=== PATIENT | male | born 1965 | race Caucasian/White ===

== ENCOUNTER 2017-05-16 16:50 | Day surgery (SDC) | payer OTHER ==
[2017-05-16] MEDS ORDERED: Lidocaine 1% 50 ML MDV ONE (17:16)
[2017-05-16] MEDS ORDERED: Bupivacaine 0.25% 30 ML SDV ONE (17:16)
--- NOTE | 2017-05-16 17:27 | PCM.PREANE ---
Preanesthetic Assessment - Anesthesia/Transfusion/Family Hx Anesthesia History: Prior Anesthesia Without Reaction Family History of Anesthesia Reaction: No Transfusion History: No Prior Transfusion(s) Additional History: hammer hit hand today at work. - Review of Systems General: No Symptoms Pulmonary: No Symptoms Cardiovascular: No Symptoms Gastrointestinal: No Symptoms Neurological: No Symptoms Other: Reports: None - Physical Assessment NPO Status Date: 05/16/17 NPO Status Time: 13:00 (sip pop) O2 Sat by Pulse Oximetry: 98 Respiratory Rate: 20 Vital Signs: Last Vital Signs Temp 97.9 F 05/16/17 17:03 Pulse 68 05/16/17 17:03 Resp 20 05/16/17 17:03 BP 157/97 H 05/16/17 17:03 Pulse Ox 98 05/16/17 17:03 Height: 5 ft 10 in Weight: 87.543 kg ASA Class: 2E Mental Status: Alert & Oriented x3 Airway Class: Mallampati = 1 Dentition: Reports: Normal Dentition Thyro-Mental Finger Breadths: 3 Mouth Opening Finger Breadths: 3 ROM/Head Extension: Full Lungs: Clear to Auscultation, Normal Respiratory Effort Cardiovascular: Regular Rate, Regular Rhythm - Allergies Allergies/Adverse Reactions: Allergies Allergy/AdvReac Type Severity Reaction Status Date / Time No Known Allergies Allergy Verified 05/16/17 17:09 - Blood Blood Available: No - Acknowledgements Anesthesia Type Planned: MAC Pt an Appropriate Candidate for the Planned Anesthesia: Yes Alternatives and Risks of Anesthesia Discussed w Pt/Guardian: Yes Pt/Guardian Understands and Agrees with Anesthesia Plan: Yes PreAnesthesia Questionnaire Cardiovascular History: Reports: Other (See Below) (borderline high bp) Gastrointestinal History: Reports: Other (See Below) Other Gastrointestinal History: pyloric sphincter surgery 1965 Musculoskeletal History: Reports: Other (See Below) Other Musculoskeletal History: right h and tendon fixed in February this 2016 - Past Surgical History Other Male Surgeries/Procedures: sphincter muscle repaired at 3 months old Musculoskeletal Surgical History: Reports: Other (See Below) (right hand tendon - right wrist repaired) - SUBSTANCE USE Smoking Status *Q: Current Every Day Smoker Tobacco Use Within Last Twelve Months: Cigarettes Second Hand Smoke Exposure: Yes Days Per Week of Alcohol Use: 2 Number of Drinks Per Day: 4 Total Drinks Per Week: 8 Recreational Drug Use History: No - HOME MEDS Home Medications: Home Meds . [No Known Home Meds] 05/16/17 [History]
[2017-05-16] MEDS ORDERED: Propofol 200 MG/20 ML SDV ONE ×3 (17:38→19:08)
[2017-05-16] MEDS ORDERED: Lidocaine 1% 4 ML ONE (17:38)
[2017-05-16] MEDS ORDERED: Midazolam 1 MG/ML 2 ML SDV ONE (17:39)
[2017-05-16] MEDS ORDERED: fentaNYL 100 MCG/2 ML SDV ONE (17:39)
[2017-05-16] MEDS ORDERED: Ondansetron 4 MG/2 ML SDV IVPUSH PRN (18:01)
[2017-05-16] MEDS ORDERED: fentaNYL 100 MCG/2 ML SDV IVPUSH PRN (18:01)
[2017-05-16] MEDS ORDERED: Lactated Ringers 1,000 ML ONE (18:03)
[2017-05-16] MEDS ORDERED: ceFAZolin 1 GM Vial ONE (19:15)
--- NOTE | 2017-05-16 19:41 | PCM.POSTAN ---
POST ANESTHESIA ASSESSMENT - MENTAL STATUS Mental Status: Alert, Oriented - VITAL SIGNS Pulse Rate: 64 SaO2: 100 Resp Rate: 16 Blood Pressure: 130/80 Temperature: 98 F - RESPIRATORY Respiratory Status: Respiratory Rate WNL, Airway Patent, O2 Saturation Stable, Supplemental Oxygen - CARDIOVASCULAR CV Status: Pulse Rate WNL, Blood Pressure Stable - GASTROINTESTINAL GI Status: No Symptoms - PAIN Pain Score: 0 - POST OP HYDRATION Hydration Status: Adequate & Stable
[2017-05-16] MEDS ORDERED: Acetaminophen/HYDROcodone 325-5 MG Tab PO ONE (19:59)
--- NOTE | 2017-05-16 20:33 | PCM48HPAN ---
Post Anesthesia Note - EVALUATION WITHIN 48HRS OF ANESTHETIC Vital Signs in Normal Range: Yes Patient Participated in Evaluation: Yes Respiratory Function Stable: Yes Airway Patent: Yes Cardiovascular Function Stable: Yes Hydration Status Stable: Yes Pain Control Satisfactory: Yes Nausea and Vomiting Control Satisfactory: Yes Mental Status Recovered: Yes
[2017-05-16 21:14] VITALS: BP 141/90
--- NOTE | 2017-05-18 08:59 | CR ---
Left fifth finger: Three views of the left fifith finger were obtained. Comparison: Previous left hand study performed on the same day (2:48 PM). Previous fracture shows reduction with fixation by plate and screws. Soft tissue swelling is noted. Fluoroscopy time not given at time of dictation. Impression: 1. Reduction and fixation of proximal phalanx fracture. Diagnostic code #2
--- NOTE | 2017-05-20 21:55 | PCM.OPNOTE ---
- General Post-Op/Procedure Note Date of Surgery/Procedure: 05/16/17 Operative Procedure(s): irrigation and debridement left small finger open proximal phalanx fracture with open reduction internal fixation Pre Op Diagnosis: open left small finger proximal phalanx fracture Post-Op Diagnosis: Same Anesthesia Technique: Local, MAC Primary Surgeon: Glen Perez Anesthesia Provider: Suki Dubon [employer] Tester: Jovanna Russell EBL in mLs: 50 Complications: None Condition: Good
--- NOTE | 2017-05-20 23:21 | OR ---
DATE OF OPERATION: 05/16/2017 SURGEON: Glen Perez MD OPERATIVE PROCEDURE: Irrigation and debridement, less than 5 square cm, left small finger open proximal phalanx fracture with open reduction and internal fixation. PREOPERATIVE DIAGNOSIS: Open left small finger proximal phalanx fracture. POSTOPERATIVE DIAGNOSIS: Open left small finger proximal phalanx fracture. ANESTHESIA: Local MAC. ANESTHESIA PROVIDER: Suki Dubon CRNA. SOUR BLEACHING PLEATER: Jovanna Russell PA-C. ESTIMATED BLOOD LOSS: 60 mL. COMPLICATIONS: None. CONDITION: Stable. DESCRIPTION OF PROCEDURE: The patient was identified in the preop holding area. Proper site was marked and identified by the surgeon. The patient was taken back to the operating theater where after adequate anesthesia, the patient's left upper extremity was sterilely prepped and draped in the usual sterile fashion. OR time-out was performed. The patient received 2 g IV Ancef. At this time, a digital block was performed along with a flexor tendon block to the left small finger. Once this was adequately anesthetized, 3 L of normal saline was irrigated through the wound. The skin edges were debrided back along and any devitalized tissue. At this time, there was found to be a longitudinal rent in the extensor adair over the proximal phalanx. 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 Once it was irrigated and debrided, a Eben 5 hole 1.7 mm locking plate was placed and a K- wire was then placed in retrograde fashion through the proximal phalanx. It was noted that the proximal portion of the fragment was very flat and comminuted much more than it appeared on radiographs, so that the cortical read was only able to be obtained on the dorsum and not on the side secondary to the flattening and crush injury to the proximal portion. At this time, there was good cortical read on the dorsal side for rotation and length yazidism. Two 1.7 locking screws were placed proximally, two 1.7 screws were placed distally. K-wire was then removed. It was found to be in adequate position in both AP and lateral views, although it was widened again on the proximal portion. At this time, it was decided that we would on plan of grafting around the defect as well secondary to the patient's tobacco history at this time. 2 mL of the Sharon Vitoss were used around the fracture site for augmentation of the fracture repair. At this time, 4-0 Ethibond was used for closure of the rent in the extensor adair. The patient had good cascade of the fingers. There was no malrotation noted and 4-0 Vicryl and 4-0 nylon were then used for closure of the skin. The patient was then placed on ulnar gutter splint. He tolerated the procedure well and was sent to PACU in stable condition. OPERATION PERFORMED: PAOLA /[id number]
== END 2017-05-16 20:50 | disposition home or self-care (01) ==
LOC: JD.ED 16:50 → JD.SDS 17:16
PROVIDERS: ATTEND Orthopaedic Surgery
DX: S62.617B Displaced fracture of proximal phalanx of left little finger, initial encounter for open fracture (principal); F17.210 Nicotine dependence, cigarettes, uncomplicated; X58.XXXA Exposure to other specified factors, initial encounter
CPT/HCPCS: 11010; 26735; 76000; 99284; A9270; C1713; C1763; C1769; C1776; J0690; J2250; J3010; J3490; J7120; 01830; J2704